=== PATIENT | female | born 1985 | race African-American/Black ===

== ENCOUNTER 2016-10-01 19:49 | Emergency (ER) | payer OTHER ==
[~2016-10-01] VITALS: Ht 162.6 cm; Wt 81.7 kg
[~2016-10-01 19:49] MED LIST: BACTRIM DS TAB1 EACH PO; FLAGYL ER750 MG PO; FLAGYL500 MG PO; FLEXERIL PO; IBUPROFEN 800800 MG PO; NOHOMEMEDICATIONS; ULTRAM 50MG TAB50 MG PO; VALTREX1000 MG PO
[2016-10-01 19:50] VITALS: BP 126/56
[2016-10-01 20:00] LABS: URINE BILIRUBIN NEGATIVE (Negative); URINE BLOOD NEGATIVE (Negative); URINE COLOR YELLOW; URINE GLUCOSE-RANDOM* NEGATIVE (Negative); URINE KETONES NEGATIVE (Negative); URINE NITRITE NEGATIVE (Negative); URINE PROTEIN (DIPSTICK) TRACE (Negative); URINE SPECIFIC GRAVITY 1.025 (1.003-1.035); URINE UROBILINOGEN 0.2 E.U./dl (0.2-1.0)
[2016-10-01 20:14] LABS: CASTS None Seen /LPF (None Seen); SQUAMOUS >10 Many /LPF (0-3)
[2016-10-01 20:16] LABS: CRYSTALS None Seen /LPF (None Seen); URINE RBC 0-2 Rare /HPF (0-2)
[2016-10-01] MEDS ORDERED: DIFLUCAN200 MG PO (20:31)
[2016-10-03 16:08] LABS: CHLAMYDIA TRACHOMATIS-PCR Negative (Negative); NEISSERIA GONORRHEA-PCR Negative (Negative)
== END 2016-10-01 20:35 | disposition home or self-care (01) ==
LOC: ER 19:49
PROVIDERS: Physician Assistant
DX: B37.3 Candidiasis of vulva and vagina (principal)

== ENCOUNTER 2016-11-02 12:41 | Emergency (ER) | payer OTHER ==
[~2016-11-02] VITALS: Ht 320 cm; Wt 63.5 kg
[~2016-11-02 12:41] MED LIST changes: +DIFLUCAN200 MG PO
[2016-11-02 12:52] VITALS: BP 109/65
[2016-11-02] MEDS ORDERED: PREDNISONE 20 M20 MG PO (13:11)
[2016-11-02] MEDS ORDERED: PENICILLIN V P500 MG PO (13:11)
== END 2016-11-02 13:42 | disposition home or self-care (01) ==
LOC: ER 12:41
DX: J02.0 Streptococcal pharyngitis (principal)